=== PATIENT | female | born 1945 | race Caucasian/White ===

== ENCOUNTER → 2016-10-30 | Outpatient (CLI) | payer MEDICARE, BC ==
[~2016-10-30] MED LIST: ADVIL LIQUI-GE200 MG PO; ALBUTEROL SULFAT3 M3 IH; ATORVASTATIN CA20 MG PO; BENADRYL ALLERG25 M2 PO; BISACODYL10 MG RC; CALCIUM 600600 M2 PO; CALCIUM CITRAT250 M1 PO; CELEXA 20MG20 MG/TA1 PO; CHILDREN'S ASPI81 M1 PO; CIPRO 500MG TA500 MG PO; CITALOPRAM HBR10 MG PO; CITRACAL + D 251 TAB PO; CITRACAL + D 311 TAB PO; CLONAZEPAM0.5 MG PO; COLACE50 MG PO; DESITIN ORIGINAL TP; ENEMA 135 ML135 M1 RC; FORTEO250 MCG/ML SC; FOSAMAX 70MG TA70 MG PO; FOSAMAX70 MG PO; GOOD NEIGH1200 MG/15 PO; KELP TABLETS1 TAB PO; KEPPRA 500MG500 MG PO; KEPPRA1000 MG PO; KLONOPIN 0.5MG0.5 MG PO; LEADER MELATONIN5 MG PO; LISINOPRIL10 MG PO; LISINOPRIL20 MG PO; LISINOPRIL5 MG PO; MASON NATURAL2000 IU PO; MELATONIN5 M4 PO; MILK OF MA400 MG/52 PO; MIRALAX 17GM PK1 PKT PO; MIRALAX17 GM PO; NS 1000 10001000 ML IV; OMEGA 3 120 MG-1 CAP PO; PEPCID AC20 M1 PO; RITE AID KRILL500 MG PO; ROCEPHIN VIA1 G/VIAL IM; ROCEPHIN VIA1 G/VIAL IV; TYLENOL 325MG325 MG PO; TYLENOL 500MG500 MG PO; ZETIA 10MG TAB10 MG PO; ZOLOFT 50MG50 MG PO; [UNRECOGNIZED DRUG - OTHER] MM; [UNRECOGNIZED DRUG - OTHER] PO
== END ==
LOC: RAD 10:57
DX: Z13.820 Encounter for screening for osteoporosis (principal); M81.0 Age-related osteoporosis without current pathological fracture

== ENCOUNTER → 2016-11-13 | Outpatient (CLI) | payer MEDICARE, BC ==
[2016-06-26 08:07] VITALS: BP 115/50
== END ==
LOC: LAB 05:51
DX: G11.4 Hereditary spastic paraplegia (principal)

== ENCOUNTER → 2017-03-05 | Outpatient (CLI) | payer MEDICARE, BC ==
[2016-06-26 08:07] VITALS: BP 115/50
== END ==
LOC: MAMMO 14:17
DX: N64.4 Mastodynia (principal)

== ENCOUNTER 2017-05-13 04:28 | Emergency (ER) | payer MEDICARE, BC ==
[~2017-05-13] VITALS: Wt 66.0 kg
[~2017-05-13 04:28] MED LIST changes: +DITROPAN XL 5MG5 MG PO; +MUCINEX DM 60 M1 TER PO; +ZITHROMAX Z PA250 MG PO
[2017-05-13] MEDS ORDERED: COLACE100 M1 PO (05:16)
[2017-05-13] MEDS ORDERED: MIRALAX17 GM PO (05:17)
[2017-05-13] MEDS ORDERED: TYLENOL 500MG500 MG PO (05:18)
[2017-05-13] MEDS ORDERED: VITAMIN D32000 IU PO (05:20)
[2017-05-13] MEDS ORDERED: CIPROFLOXA400 MG/202 IV (09:26)
[2017-05-13 10:08] VITALS: BP 119/58
== END 2017-05-13 10:37 | disposition home or self-care (01) ==
LOC: ED 04:28
DX: N39.0 Urinary tract infection, site not specified (principal); R41.82 Altered mental status, unspecified; E16.2 Hypoglycemia, unspecified; G35 Multiple sclerosis; F41.9 Anxiety disorder, unspecified; F32.9 Major depressive disorder, single episode, unspecified; K59.00 Constipation, unspecified; M81.0 Age-related osteoporosis without current pathological fracture
CPT/HCPCS: J0744; J7120

== ENCOUNTER → 2017-05-28 | Outpatient (CLI) | payer MEDICARE, BC ==
[2017-05-13 10:08] VITALS: BP 119/58
[~2017-05-28] MED LIST changes: +CIPROFLOXA400 MG/202 IV; +COLACE100 M1 PO; +VITAMIN D32000 IU PO
== END ==
LOC: LAB 06:25
DX: D64.9 Anemia, unspecified (principal); R31.9 Hematuria, unspecified

== ENCOUNTER → 2017-06-01 | Outpatient (CLI) | payer MEDICARE, BC ==
[2017-05-13 10:08] VITALS: BP 119/58
== END ==
LOC: LAB 02:30
DX: N39.0 Urinary tract infection, site not specified (principal); R31.9 Hematuria, unspecified

== ENCOUNTER → 2017-06-16 | Outpatient (CLI) | payer MEDICARE, BC | LOC: LAB 06:30 | DX: Z01.812 Encounter for preprocedural laboratory examination (principal) ==

== ENCOUNTER → 2017-06-30 | Outpatient (CLI) | payer MEDICARE, BC ==
[2017-06-30 10:44] LABS: URINE APPEARANCE CLOUDY; URINE BILIRUBIN NEGATIVE (NEGATIVE); URINE BLOOD 50 ery/uL (NEGATIVE); URINE COLOR YELLOW; URINE GLUCOSE NEGATIVE (NEGATIVE); URINE KETONE NEGATIVE (NEGATIVE); URINE LEUKOCYTE ESTERASE 2+ (NEGATIVE); URINE MUCUS PRESENT (NOT PRESENT); URINE NITRATE NEGATIVE (NEGATIVE); URINE PROTEIN(semi-quant) TRACE mg/dL (NEGATIVE); URINE UROBILINOGEN NORMAL (NORMAL); URINE WBC >50 /hpf (0-3)
== END ==
LOC: LAB 10:30
PROVIDERS: Family Medicine
DX: R82.99 Other abnormal findings in urine (principal)

== ENCOUNTER → 2017-08-10 | Outpatient (CLI) | payer MEDICARE, BC | LOC: RAD 07:55 | DX: N31.2 Flaccid neuropathic bladder, not elsewhere classified (principal); N39.0 Urinary tract infection, site not specified ==

== ENCOUNTER → 2017-09-08 | Outpatient (CLI) | payer MEDICARE, BC ==
[2017-09-08 16:05] LABS: ALBUMIN 4.1 g/dL (3.5-5.0); BUN/CREATININE RATIO 21.9 (6.0-26.0); CALCIUM 9.6 mg/dL (8.4-10.2); TOTAL BILIRUBIN 0.4 mg/dL (0.2-1.3)
[2017-09-08 17:16] LABS: PROTHROMBIN TIME 9.3 SECONDS (9.0-12.0)
[2017-09-08 20:36] LABS: BASO # 0.1 (0.02-0.10); EOS # 0.1 (0.04-0.40); HEMATOCRIT 35.1 % (37.0-47.0); HEMOGLOBIN 11.3 g/dL (12.5-16.0); LYMPH# 0.8 (1.50-4.00); MEAN CELL VOLUME 96 fl (78-100); MEAN CORPUSCULAR HEMOGLOBIN 31 pg (27-31); MEAN CORPUSCULAR HGB CONC 32 g/dL (33-37); MEAN PLATELET VOLUME 10.1 fl (7.4-10.4); MONO # 0.3 (0.20-0.80); NEU # 2.1 (1.40-6.50); PLATELET COUNT 244 K/mm3 (130-400); RED BLOOD COUNT 3.65 M/mm3 (4.10-5.30); RED CELL DISTRIBUTION WIDTH 14.2 % (11.5-14.5); WHITE BLOOD COUNT 3.4 K/mm3 (4.8-10.8)
[2017-09-09 00:27] LABS: HEPATITIS B CORE AB TOTAL Negative (()); HEPATITIS B SURFACE ANTIBODY <2.0 (()); HEPATITIS B SURFACE ANTIGEN Negative (()); HEPATITIS C VIRUS ANTIBODY Negative (())
[2017-09-09 22:07] LABS: ANA SCREEN with REFLEX Negative (Negative)
[2017-09-10 15:11] LABS: CERULOPLASMIN 38.5 mg/dL (())
[2017-09-11 13:20] LABS: ANTI-SMOOTH MUSCLE ANTIBODY Negative (Negative)
== END ==
LOC: RAD 15:06
PROVIDERS: Physician Assistant
DX: R74.8 Abnormal levels of other serum enzymes (principal); G35 Multiple sclerosis; K63.89 Other specified diseases of intestine

== ENCOUNTER → 2017-09-29 | Outpatient (CLI) | payer MEDICARE, BC | LOC: LAB 15:02 | DX: K63.89 Other specified diseases of intestine (principal); R74.8 Abnormal levels of other serum enzymes; G35 Multiple sclerosis ==

== ENCOUNTER 2017-11-22 08:45 | Emergency (ER) | payer MEDICARE, BC ==
[2017-11-22] MEDS ORDERED: LEVOTHYROXIN0.025 MG PO (09:04)
[2017-11-22] MEDS ORDERED: ZOFRAN4 M2 PO (09:07)
[2017-11-22 09:36] LABS: HEMOGLOBIN 11.1 g/dL (12.5-16.0); MEAN CELL VOLUME 96 fl (78-100); MEAN CORPUSCULAR HEMOGLOBIN 31 pg (27-31); MEAN CORPUSCULAR HGB CONC 33 g/dL (33-37); MEAN PLATELET VOLUME 9.6 fl (7.4-10.4); PLATELET COUNT 207 K/mm3 (130-400); RED BLOOD COUNT 3.56 M/mm3 (4.10-5.30); RED CELL DISTRIBUTION WIDTH 13.7 % (11.5-14.5); WHITE BLOOD COUNT 7.6 K/mm3 (4.8-10.8)
[2017-11-22 09:46] LABS: ALBUMIN 3.8 g/dL (3.5-5.0); BUN/CREATININE RATIO 28.9 (6.0-26.0); CALCIUM 9.8 mg/dL (8.4-10.2); POTASSIUM 4.1 mmol/L (3.6-5.0); TOTAL BILIRUBIN 0.4 mg/dL (0.2-1.3); TOTAL PROTEIN 7.5 g/dL (6.3-8.2)
[2017-11-22 10:06] LABS: URINE APPEARANCE CLEAR; URINE BILIRUBIN NEGATIVE (NEGATIVE); URINE BLOOD TRACE (NEGATIVE); URINE COLOR YELLOW; URINE GLUCOSE NEGATIVE (NEGATIVE); URINE KETONE 3+ (NEGATIVE); URINE LEUKOCYTE ESTERASE NEGATIVE (NEGATIVE); URINE NITRATE NEGATIVE (NEGATIVE); URINE PROTEIN(semi-quant) TRACE mg/dL (NEGATIVE); URINE UROBILINOGEN NORMAL (NORMAL)
[2017-11-22 10:06] LABS: LYMPHOCYTE 7 % (20-51); MONOCYTE 6 % (3-10); NEUTROPHILS 87 % (42-75)
[2017-11-22 10:13] LABS: URINE MUCUS PRESENT (NOT PRESENT)
[2017-11-22 15:24] VITALS: BP 128/62
== END 2017-11-22 15:15 | disposition home or self-care (01) ==
LOC: ED 08:45
PROVIDERS: Family Medicine
DX: R53.81 Other malaise (principal); R53.83 Other fatigue; R73.9 Hyperglycemia, unspecified; G35 Multiple sclerosis; R13.10 Dysphagia, unspecified; Z87.440 Personal history of urinary (tract) infections; Z79.82 Long term (current) use of aspirin
CPT/HCPCS: J7042

== ENCOUNTER → 2017-12-07 | Outpatient (CLI) | payer MEDICARE, BC ==
[2017-11-22 15:24] VITALS: BP 128/62
[~2017-12-07] MED LIST changes: +LEVOTHYROXIN0.025 MG PO; +ZOFRAN4 M2 PO
== END ==
LOC: LAB 06:36
DX: E03.9 Hypothyroidism, unspecified (principal); Z88.8 Allergy status to other drugs, medicaments and biological substances

== ENCOUNTER → 2018-03-30 | Outpatient (CLI) | payer MEDICARE, BC ==
[2018-03-30 16:13] LABS: EOS # 0.1 (0.04-0.40); EOS % 2.3 % (1.0-5.0); HEMATOCRIT 33.6 % (37.0-47.0); HEMOGLOBIN 10.9 g/dL (12.5-16.0); LYMPH# 0.8 (1.50-4.00); MEAN CELL VOLUME 95 fl (78-100); MEAN CORPUSCULAR HEMOGLOBIN 31 pg (27-31); MEAN CORPUSCULAR HGB CONC 32 g/dL (33-37); MEAN PLATELET VOLUME 10.3 fl (7.4-10.4); MONO # 0.4 (0.20-0.80); NEU # 3.3 (1.40-6.50); PLATELET COUNT 146 K/mm3 (130-400); RED BLOOD COUNT 3.55 M/mm3 (4.10-5.30); RED CELL DISTRIBUTION WIDTH 14.1 % (11.5-14.5); WHITE BLOOD COUNT 4.7 K/mm3 (4.8-10.8)
[2018-03-30 16:18] LABS: ALBUMIN 4.1 g/dL (3.5-5.0); BUN/CREATININE RATIO 25.8 (6.0-26.0); CALCIUM 9.8 mg/dL (8.4-10.2); POTASSIUM 4.8 mmol/L (3.6-5.0); TOTAL BILIRUBIN 0.2 mg/dL (0.2-1.3); TOTAL PROTEIN 7.5 g/dL (6.3-8.2)
== END ==
LOC: LAB 15:44
PROVIDERS: Physician Assistant
DX: R74.8 Abnormal levels of other serum enzymes (principal); G35 Multiple sclerosis

== ENCOUNTER → 2018-04-01 | Outpatient (CLI) | payer MEDICARE, BC | LOC: RAD 08:20 | DX: R74.8 Abnormal levels of other serum enzymes (principal); G35 Multiple sclerosis ==

== ENCOUNTER 2018-05-15 05:10 | Emergency (ER) | payer MEDICARE, BC ==
[2018-05-15] MEDS ORDERED: ENEMA BOTTLE1 EACH MC (06:07)
[2018-05-15 06:19] LABS: HEMATOCRIT 33.9 % (37.0-47.0); HEMOGLOBIN 11.2 g/dL (12.5-16.0); MEAN CELL VOLUME 94 fl (78-100); MEAN CORPUSCULAR HEMOGLOBIN 31 pg (27-31); MEAN CORPUSCULAR HGB CONC 33 g/dL (33-37); MEAN PLATELET VOLUME 10.3 fl (7.4-10.4); PLATELET COUNT 166 K/mm3 (130-400); RED BLOOD COUNT 3.61 M/mm3 (4.10-5.30); RED CELL DISTRIBUTION WIDTH 14.1 % (11.5-14.5); WHITE BLOOD COUNT 6.2 K/mm3 (4.8-10.8)
[2018-05-15 06:29] LABS: ALBUMIN 3.8 g/dL (3.5-5.0); CALCIUM 9.8 mg/dL (8.4-10.2); POTASSIUM 4.2 mmol/L (3.6-5.0); TOTAL BILIRUBIN 0.3 mg/dL (0.2-1.3); TOTAL PROTEIN 6.7 g/dL (6.3-8.2)
[2018-05-15 06:55] LABS: LYMPHOCYTE 14 % (20-51); MONOCYTE 4 % (3-10); NEUTROPHILS 82 % (42-75)
[2018-05-15 07:29] VITALS: BP 160/74
== END 2018-05-15 07:20 | disposition home or self-care (01) ==
LOC: ED 05:10
PROVIDERS: Family Medicine
DX: F41.9 Anxiety disorder, unspecified (principal); G35 Multiple sclerosis; Z79.82 Long term (current) use of aspirin; Z79.899 Other long term (current) drug therapy

== ENCOUNTER → 2018-05-28 | Outpatient (CLI) | payer MEDICARE, BC ==
[2018-05-15 07:29] VITALS: BP 160/74
[~2018-05-28] MED LIST changes: +ENEMA BOTTLE1 EACH MC
[2018-05-28 08:42] LABS: EOS # 0.1 (0.04-0.40); EOS % 2.6 % (1.0-5.0); HEMATOCRIT 31.2 % (37.0-47.0); HEMOGLOBIN 10.4 g/dL (12.5-16.0); MEAN CELL VOLUME 94 fl (78-100); MEAN CORPUSCULAR HEMOGLOBIN 31 pg (27-31); MEAN CORPUSCULAR HGB CONC 33 g/dL (33-37); MEAN PLATELET VOLUME 10.2 fl (7.4-10.4); MONO # 0.4 (0.20-0.80); NEU # 2.3 (1.40-6.50); PLATELET COUNT 160 K/mm3 (130-400); RED BLOOD COUNT 3.32 M/mm3 (4.10-5.30); RED CELL DISTRIBUTION WIDTH 14.1 % (11.5-14.5); WHITE BLOOD COUNT 3.8 K/mm3 (4.8-10.8)
== END ==
LOC: LAB 07:30
PROVIDERS: Family Medicine
DX: D72.819 Decreased white blood cell count, unspecified (principal)

== ENCOUNTER → 2018-08-09 | Day surgery (SDC) | payer MEDICARE, BC | LOC: MSO 08:19 → EDSTATUS 08:20 → MSO 15:18 | DX: D64.9 Anemia, unspecified (principal); G40.909 Epilepsy, unspecified, not intractable, without status epilepticus; F41.9 Anxiety disorder, unspecified; F32.9 Major depressive disorder, single episode, unspecified; G35 Multiple sclerosis; E07.9 Disorder of thyroid, unspecified; F79 Unspecified intellectual disabilities | CPT/HCPCS: 00812; J2704; J7120 ==

== ENCOUNTER → 2018-11-16 | Outpatient (CLI) | payer MEDICARE, BC | LOC: RAD 09:54 → MAMMO 10:00 | DX: M81.0 Age-related osteoporosis without current pathological fracture (principal); N95.9 Unspecified menopausal and perimenopausal disorder ==

== ENCOUNTER → 2019-01-11 | Outpatient (CLI) | payer MEDICARE, BC ==
[2019-01-11 22:13] LABS: URINE APPEARANCE CLOUDY; URINE BILIRUBIN NEGATIVE (NEGATIVE); URINE COLOR YELLOW; URINE GLUCOSE NEGATIVE (NEGATIVE); URINE KETONE NEGATIVE (NEGATIVE); URINE NITRATE POSITIVE (NEGATIVE); URINE PROTEIN(semi-quant) TRACE mg/dL (NEGATIVE); URINE UROBILINOGEN NORMAL (NORMAL)
[2019-01-11 22:14] LABS: URINE BLOOD TRACE (NEGATIVE); URINE LEUKOCYTE ESTERASE 2+ (NEGATIVE); URINE WBC >50 /hpf (0-3)
== END ==
LOC: LAB 16:34
PROVIDERS: Family Medicine
DX: R03.0 Elevated blood-pressure reading, without diagnosis of hypertension (principal)

== ENCOUNTER → 2019-01-12 | Outpatient (CLI) | payer MEDICARE, BC ==
[2019-01-12 07:02] LABS: HEMATOCRIT 32.5 % (37.0-47.0); HEMOGLOBIN 10.4 g/dL (12.5-16.0); MEAN CELL VOLUME 95 fl (78-100); MEAN CORPUSCULAR HEMOGLOBIN 30 pg (27-31); MEAN CORPUSCULAR HGB CONC 32 g/dL (33-37); PLATELET COUNT 165 K/mm3 (130-400); RED BLOOD COUNT 3.44 M/mm3 (4.10-5.30); RED CELL DISTRIBUTION WIDTH 13.7 % (11.5-14.5); WHITE BLOOD COUNT 2.6 K/mm3 (4.8-10.8)
[2019-01-12 07:21] LABS: LYMPHOCYTE 31 % (20-51); MONOCYTE 13 % (3-10); NEUTROPHILS 49 % (42-75)
[2019-01-12 07:38] LABS: ALBUMIN 3.3 g/dL (3.4-4.8); TOTAL PROTEIN 6.2 g/dL (6.2-8.1)
[2019-01-12 07:47] LABS: TOTAL BILIRUBIN 0.1 mg/dL (0.2-1.2)
== END ==
LOC: LAB 06:15
PROVIDERS: Family Medicine
DX: E78.5 Hyperlipidemia, unspecified (principal); E03.9 Hypothyroidism, unspecified; R60.1 Generalized edema

== ENCOUNTER → 2019-01-20 | Outpatient (CLI) | payer MEDICARE, BC ==
[2019-01-20 07:15] LABS: HEMATOCRIT 33.1 % (37.0-47.0); HEMOGLOBIN 10.9 g/dL (12.5-16.0); MEAN CELL VOLUME 93 fl (78-100); MEAN CORPUSCULAR HEMOGLOBIN 31 pg (27-31); MEAN CORPUSCULAR HGB CONC 33 g/dL (33-37); MEAN PLATELET VOLUME 10.5 fl (7.4-10.4); PLATELET COUNT 161 K/mm3 (130-400); RED BLOOD COUNT 3.56 M/mm3 (4.10-5.30); RED CELL DISTRIBUTION WIDTH 13.9 % (11.5-14.5)
[2019-01-20 08:11] LABS: BAND 0 % (0-10); LYMPHOCYTE 19 % (20-51); NEUTROPHILS 59 % (42-75)
[2019-01-20 08:12] LABS: METAMYELOCYTE 0 % (0-0); MONOCYTE 16 % (3-10); MYELOCYTE 0 % (0-0); NUCLEATED RED BLOOD CELL 0 (0-6)
== END ==
LOC: LAB 06:15
PROVIDERS: Family Medicine
DX: D72.819 Decreased white blood cell count, unspecified (principal)

== ENCOUNTER → 2019-01-28 | Outpatient (CLI) | payer MEDICARE, BC ==
[2019-01-28 07:42] LABS: URINE APPEARANCE CLEAR; URINE BILIRUBIN NEGATIVE (NEGATIVE); URINE BLOOD NEGATIVE (NEGATIVE); URINE COLOR YELLOW; URINE GLUCOSE NEGATIVE (NEGATIVE); URINE KETONE NEGATIVE (NEGATIVE); URINE LEUKOCYTE ESTERASE NEGATIVE (NEGATIVE); URINE NITRATE NEGATIVE (NEGATIVE); URINE PROTEIN(semi-quant) NEGATIVE (NEGATIVE); URINE UROBILINOGEN NORMAL (NORMAL); URINE WBC 0 /hpf (0-3)
== END ==
LOC: LAB 01:05
PROVIDERS: Family Medicine
DX: R31.9 Hematuria, unspecified (principal)

== ENCOUNTER 2019-07-23 11:15 | Emergency (ER) | payer MEDICARE, BC ==
[~2019-07-23] VITALS: Ht 160 cm; Wt 61.8 kg
[2019-07-23 12:18] LABS: HEMATOCRIT 33.7 % (37.0-47.0); HEMOGLOBIN 10.7 g/dL (12.5-16.0); MEAN CELL VOLUME 98 fl (78-100); MEAN CORPUSCULAR HEMOGLOBIN 31 pg (27-31); MEAN CORPUSCULAR HGB CONC 32 g/dL (33-37); MEAN PLATELET VOLUME 9.9 fl (7.4-10.4); PLATELET COUNT 179 K/mm3 (130-400); RED BLOOD COUNT 3.43 M/mm3 (4.10-5.30); RED CELL DISTRIBUTION WIDTH 14.7 % (11.5-14.5); WHITE BLOOD COUNT 5.5 K/mm3 (4.8-10.8)
[2019-07-23 12:26] LABS: ALBUMIN 3.7 g/dL (3.4-4.8)
[2019-07-23 12:27] LABS: POTASSIUM 4.7 mmol/L (3.5-5.1)
[2019-07-23 12:28] LABS: CALCIUM 9.8 mg/dL (8.3-10.5)
[2019-07-23 12:29] LABS: TOTAL PROTEIN 7.1 g/dL (6.2-8.1)
[2019-07-23 12:31] LABS: TOTAL BILIRUBIN 0.4 mg/dL (0.2-1.2)
[2019-07-23 12:45] LABS: HYPOCHROMIA 1+; LYMPHOCYTE 11 % (20-51); MONOCYTE 10 % (3-10); NEUTROPHILS 79 % (42-75)
[2019-07-23 13:00] LABS: PH-URINE 5.5 (5.0 - 8.0); URINE APPEARANCE CLEAR; URINE BILIRUBIN NEGATIVE (NEGATIVE); URINE COLOR YELLOW; URINE GLUCOSE NEGATIVE (NEGATIVE); URINE KETONE 2+ (NEGATIVE); URINE NITRATE NEGATIVE (NEGATIVE); URINE PROTEIN(semi-quant) TRACE mg/dL (NEGATIVE); URINE UROBILINOGEN NORMAL (NORMAL)
[2019-07-23 13:01] LABS: URINE BLOOD TRACE (NEGATIVE); URINE LEUKOCYTE ESTERASE NEGATIVE (NEGATIVE); URINE MUCUS PRESENT (NOT PRESENT)
[2019-07-23] MEDS ORDERED: ARTIFICIAL TEAR15 M7 OP (14:16)
[2019-07-23] MEDS ORDERED: IBU800 M2 PO (14:18)
[2019-07-23] MEDS ORDERED: TRAMADOL 50 MG TAB PO (14:19)
[2019-07-23] MEDS ORDERED: GLUCAGON HCL1 MG IM (17:35)
[2019-07-23 18:03] VITALS: BP 144/72
== END 2019-07-23 18:03 | disposition home or self-care (01) ==
LOC: ED 11:15
PROVIDERS: Family Medicine
DX: K11.7 Disturbances of salivary secretion (principal); E16.2 Hypoglycemia, unspecified; G40.909 Epilepsy, unspecified, not intractable, without status epilepticus; F41.8 Other specified anxiety disorders; G35 Multiple sclerosis; Z79.82 Long term (current) use of aspirin

== ENCOUNTER → 2019-09-20 | Outpatient (CLI) | payer MEDICARE, BC ==
[~2019-09-20] MED LIST changes: +ARTIFICIAL TEAR15 M7 OP; +GLUCAGON HCL1 MG IM; +IBU800 M2 PO; +TRAMADOL 50 MG TAB PO
[2019-09-20 15:56] LABS: URINE APPEARANCE CLOUDY; URINE BILIRUBIN NEGATIVE (NEGATIVE); URINE BLOOD TRACE (NEGATIVE); URINE COLOR YELLOW; URINE GLUCOSE NEGATIVE (NEGATIVE); URINE KETONE NEGATIVE (NEGATIVE); URINE LEUKOCYTE ESTERASE 2+ (NEGATIVE); URINE NITRATE POSITIVE (NEGATIVE); URINE PROTEIN(semi-quant) TRACE mg/dL (NEGATIVE); URINE UROBILINOGEN NORMAL (NORMAL); URINE WBC >50 /hpf (0-3)
== END ==
LOC: LAB 15:52
PROVIDERS: Family Medicine
DX: N39.0 Urinary tract infection, site not specified (principal); R41.0 Disorientation, unspecified

== ENCOUNTER → 2020-02-07 | Outpatient (CLI) | payer MEDICARE, BC ==
[2020-02-07 16:48] LABS: ALBUMIN 3.7 g/dL (3.4-4.8)
[2020-02-07 16:49] LABS: CALCIUM 9.7 mg/dL (8.3-10.5)
[2020-02-07 16:50] LABS: TOTAL PROTEIN 6.9 g/dL (6.2-8.1)
[2020-02-07 16:52] LABS: EOS # 0.1 (0.04-0.40); EOS % 1.9 % (1.0-5.0); HEMATOCRIT 31.1 % (37.0-47.0); HEMOGLOBIN 9.7 g/dL (12.5-16.0); LYMPH# 0.6 (1.50-4.00); MEAN CELL VOLUME 98 fl (78-100); MEAN CORPUSCULAR HEMOGLOBIN 30 pg (27-31); MEAN CORPUSCULAR HGB CONC 31 g/dL (33-37); MEAN PLATELET VOLUME 10.9 fl (7.4-10.4); MONO # 0.4 (0.20-0.80); NEU # 2.6 (1.40-6.50); PLATELET COUNT 137 K/mm3 (130-400); RED BLOOD COUNT 3.19 M/mm3 (4.10-5.30); RED CELL DISTRIBUTION WIDTH 14.9 % (11.5-14.5); TOTAL BILIRUBIN 0.2 mg/dL (0.2-1.2); WHITE BLOOD COUNT 3.8 K/mm3 (4.8-10.8)
[2020-02-07 18:07] LABS: URINE APPEARANCE CLOUDY; URINE BILIRUBIN NEGATIVE (NEGATIVE); URINE BLOOD TRACE (NEGATIVE); URINE COLOR YELLOW; URINE GLUCOSE NEGATIVE (NEGATIVE); URINE KETONE NEGATIVE (NEGATIVE); URINE LEUKOCYTE ESTERASE 2+ (NEGATIVE); URINE NITRATE POSITIVE (NEGATIVE); URINE PROTEIN(semi-quant) TRACE mg/dL (NEGATIVE); URINE UROBILINOGEN NORMAL (NORMAL); URINE WBC >50 /hpf (0-3)
[2020-02-09 04:12] LABS: LEVETIRACETAM (KEPPRA) 63 ug/mL (5-45)
== END ==
LOC: LAB 16:23
PROVIDERS: Family Medicine
DX: G35 Multiple sclerosis (principal); N39.0 Urinary tract infection, site not specified; E56.9 Vitamin deficiency, unspecified

== ENCOUNTER → 2020-02-09 | Outpatient (CLI) | payer MEDICARE, BC ==
[2020-02-09 18:53] LABS: HEMOGLOBIN 10.1 g/dL (12.5-16.0); RED BLOOD COUNT 3.3 M/mm3 (4.10-5.30); RED CELL DISTRIBUTION WIDTH 14.8 % (11.5-14.5); WHITE BLOOD COUNT 3.6 K/mm3 (4.8-10.8)
== END ==
LOC: LAB 18:44
PROVIDERS: Family Medicine
DX: D64.9 Anemia, unspecified (principal)

== ENCOUNTER → 2020-02-21 | Outpatient (CLI) | payer MEDICARE, BC ==
[2020-02-21 18:50] LABS: URINE APPEARANCE CLEAR; URINE BILIRUBIN NEGATIVE (NEGATIVE); URINE BLOOD TRACE (NEGATIVE); URINE COLOR YELLOW; URINE GLUCOSE NEGATIVE (NEGATIVE); URINE KETONE NEGATIVE (NEGATIVE); URINE LEUKOCYTE ESTERASE NEGATIVE (NEGATIVE); URINE NITRATE NEGATIVE (NEGATIVE); URINE PROTEIN(semi-quant) NEGATIVE (NEGATIVE); URINE UROBILINOGEN NORMAL (NORMAL); URINE WBC 0-1 /hpf (0-3)
== END ==
LOC: LAB 15:50
PROVIDERS: Family Medicine
DX: N39.0 Urinary tract infection, site not specified (principal)

== ENCOUNTER → 2020-02-22 | Outpatient (CLI) | payer MEDICARE, BC ==
[2020-02-28 14:49] LABS: IGM,SERUM A; IMMUNOGLOBULIN G A
[2020-02-28 14:50] LABS: IMMUNOGLOBULIN A A
== END ==
LOC: LAB 12:35
PROVIDERS: Psychiatry & Neurology Neurology
DX: Z51.81 Encounter for therapeutic drug level monitoring (principal); G35 Multiple sclerosis

== ENCOUNTER → 2020-02-29 | Outpatient (CLI) | payer MEDICARE, BC ==
[2020-02-29 11:30] LABS: URINE APPEARANCE CLOUDY; URINE COLOR LT YELLOW; URINE GLUCOSE NEGATIVE (NEGATIVE); URINE PROTEIN(semi-quant) TRACE mg/dL (NEGATIVE)
[2020-02-29 11:31] LABS: URINE BILIRUBIN NEGATIVE (NEGATIVE); URINE BLOOD 50 ery/uL (NEGATIVE); URINE KETONE NEGATIVE (NEGATIVE); URINE LEUKOCYTE ESTERASE 2+ (NEGATIVE); URINE NITRATE POSITIVE (NEGATIVE); URINE UROBILINOGEN NORMAL (NORMAL); URINE WBC >50 /hpf (0-3)
== END ==
LOC: LAB 05:05
PROVIDERS: Family Medicine
DX: R31.9 Hematuria, unspecified (principal)

== ENCOUNTER → 2020-03-14 | Outpatient (CLI) | payer MEDICARE, BC ==
[2020-03-14 11:33] LABS: URINE APPEARANCE CLEAR; URINE BILIRUBIN NEGATIVE (NEGATIVE); URINE BLOOD NEGATIVE (NEGATIVE); URINE COLOR YELLOW; URINE GLUCOSE NEGATIVE (NEGATIVE); URINE KETONE NEGATIVE (NEGATIVE); URINE LEUKOCYTE ESTERASE NEGATIVE (NEGATIVE); URINE NITRATE NEGATIVE (NEGATIVE); URINE PROTEIN(semi-quant) TRACE mg/dL (NEGATIVE); URINE UROBILINOGEN NORMAL (NORMAL); URINE WBC 0-1 /hpf (0-3)
== END ==
LOC: LAB 10:40
PROVIDERS: Family Medicine
DX: N39.0 Urinary tract infection, site not specified (principal)

== ENCOUNTER → 2020-04-03 | Outpatient (CLI) | payer MEDICARE, BC ==
[2020-04-03 15:28] LABS: EOS % 1.1 % (1.0-5.0); HEMATOCRIT 28.6 % (37.0-47.0); MEAN CELL VOLUME 98 fl (78-100); MEAN CORPUSCULAR HEMOGLOBIN 31 pg (27-31); MEAN CORPUSCULAR HGB CONC 32 g/dL (33-37); MONO # 0.4 (0.20-0.80); NEU # 2.7 (1.40-6.50); PLATELET COUNT 145 K/mm3 (130-400); RED BLOOD COUNT 2.92 M/mm3 (4.10-5.30); WHITE BLOOD COUNT 3.6 K/mm3 (4.8-10.8)
[2020-04-03 15:29] LABS: LYMPH# 0.5 (1.50-4.00)
== END ==
LOC: LAB 14:37
PROVIDERS: Family Medicine
DX: D64.9 Anemia, unspecified (principal); R56.9 Unspecified convulsions

== ENCOUNTER → 2020-04-11 | Outpatient (CLI) | payer MEDICARE, BC ==
[2020-04-11 08:53] LABS: PH-URINE 5.5 (5.0 - 8.0); URINE APPEARANCE HAZY; URINE BILIRUBIN NEGATIVE (NEGATIVE); URINE BLOOD TRACE (NEGATIVE); URINE COLOR YELLOW; URINE GLUCOSE NEGATIVE (NEGATIVE); URINE KETONE SMALL (NEGATIVE); URINE LEUKOCYTE ESTERASE NEGATIVE (NEGATIVE); URINE NITRATE NEGATIVE (NEGATIVE); URINE PROTEIN(semi-quant) NEGATIVE (NEGATIVE); URINE UROBILINOGEN NORMAL (NORMAL)
== END ==
LOC: LAB 07:36
PROVIDERS: Family Medicine
DX: N30.20 Other chronic cystitis without hematuria (principal); R32 Unspecified urinary incontinence

== ENCOUNTER → 2020-04-12 | Outpatient (CLI) | payer MEDICARE, BC ==
[2020-04-12 12:28] LABS: HEMOGLOBIN 9.5 g/dL (12.5-16.0); MEAN CELL VOLUME 98 fl (78-100); MEAN CORPUSCULAR HEMOGLOBIN 31 pg (27-31); MEAN CORPUSCULAR HGB CONC 32 g/dL (33-37); MEAN PLATELET VOLUME 9.4 fl (7.4-10.4); PLATELET COUNT 203 K/mm3 (130-400); RED BLOOD COUNT 3.07 M/mm3 (4.10-5.30); RED CELL DISTRIBUTION WIDTH 14.9 % (11.5-14.5); WHITE BLOOD COUNT 2.6 K/mm3 (4.8-10.8)
[2020-04-12 13:45] LABS: LYMPHOCYTE 17 % (20-51); MONOCYTE 15 % (3-10); NEUTROPHILS 65 % (42-75)
[2020-04-12 13:46] LABS: HYPOCHROMIA 1+
== END ==
LOC: LAB 11:56
PROVIDERS: Family Medicine
DX: D64.9 Anemia, unspecified (principal)

== ENCOUNTER → 2020-04-24 | Outpatient (CLI) | payer MEDICARE, BC ==
[2020-04-24 08:44] LABS: EOS % 0.8 % (1.0-5.0); HEMATOCRIT 29.5 % (37.0-47.0); HEMOGLOBIN 9.2 g/dL (12.5-16.0); MEAN CELL VOLUME 99 fl (78-100); MEAN CORPUSCULAR HEMOGLOBIN 31 pg (27-31); MEAN CORPUSCULAR HGB CONC 31 g/dL (33-37); MEAN PLATELET VOLUME 10.6 fl (7.4-10.4); MONO # 0.5 (0.20-0.80); NEU # 3.7 (1.40-6.50); PLATELET COUNT 151 K/mm3 (130-400); RED BLOOD COUNT 2.99 M/mm3 (4.10-5.30); RED CELL DISTRIBUTION WIDTH 15.4 % (11.5-14.5); WHITE BLOOD COUNT 4.9 K/mm3 (4.8-10.8)
[2020-04-24 08:45] LABS: LYMPH# 0.6 (1.50-4.00)
== END ==
LOC: LAB 08:31
PROVIDERS: Family Medicine
DX: D64.9 Anemia, unspecified (principal)

== ENCOUNTER → 2020-05-31 | Outpatient (CLI) | payer MEDICARE, BC ==
[2020-05-31 08:29] LABS: URINE APPEARANCE HAZY; URINE BILIRUBIN NEGATIVE (NEGATIVE); URINE BLOOD 250 ery/uL (NEGATIVE); URINE COLOR YELLOW; URINE GLUCOSE NEGATIVE (NEGATIVE); URINE KETONE NEGATIVE (NEGATIVE); URINE LEUKOCYTE ESTERASE 2+ (NEGATIVE); URINE NITRATE POSITIVE (NEGATIVE); URINE PROTEIN(semi-quant) TRACE mg/dL (NEGATIVE); URINE UROBILINOGEN NORMAL (NORMAL); URINE WBC >50 /hpf (0-3)
== END ==
LOC: LAB 07:42
PROVIDERS: Family Medicine
DX: R53.81 Other malaise (principal)

== ENCOUNTER → 2020-06-14 | Outpatient (CLI) | payer MEDICARE, BC ==
[~2020-06-14] MED LIST changes: +ALBUTEROL2.5 MG/3 M IH; -BISACODYL10 MG RC; +CALCIUM ADULT1 EACH PO; +CRANBERRY450 M2 PO; +DULCOLAX S10 MG/SUPP RC; +GLUCAGEN DIAGNOS1 MG IM; +LEVETIRACETAM500 M2 PO; +SYSTANE COMPLET10 ML OU; +TYLENOL EXTRA500 M2 PO; +VITAMIN C PUR1000 MG PO; +WELLBUTRIN 75MG75 MG PO
== END ==
LOC: LAB 14:50
DX: N39.0 Urinary tract infection, site not specified (principal)

== ENCOUNTER → 2020-06-14 | Outpatient (CLI) | payer MEDICARE, BC ==
[~2020-06-14] MED LIST changes: +NORCO 325 MG-51 TA1 PO; +POTA20PKT PO; +SYNTHROID25 MCG PO; +VANCOMYCIN HYD125 MG PO
[2020-06-14 16:14] LABS: URINE APPEARANCE HAZY; URINE COLOR YELLOW; URINE GLUCOSE 50 mg/dL mg/dL (NEGATIVE); URINE KETONE 1+ (NEGATIVE); URINE PROTEIN(semi-quant) 1+ mg/dL (NEGATIVE)
[2020-06-14 16:15] LABS: URINE BILIRUBIN NEGATIVE (NEGATIVE); URINE BLOOD 250 ery/uL (NEGATIVE); URINE LEUKOCYTE ESTERASE 1+ (NEGATIVE); URINE NITRATE NEGATIVE (NEGATIVE); URINE UROBILINOGEN NORMAL (NORMAL); URINE WBC 16-30 /hpf (0-3)
== END ==
LOC: LAB 06:30
PROVIDERS: Physician Assistant Medical
DX: N39.0 Urinary tract infection, site not specified (principal)

== ENCOUNTER → 2020-06-21 | Outpatient (CLI) | payer MEDICARE, BC ==
[~2020-06-21] MED LIST changes: -ALBUTEROL2.5 MG/3 M IH; +BISACODYL10 MG RC; -CALCIUM ADULT1 EACH PO; -CRANBERRY450 M2 PO; -DULCOLAX S10 MG/SUPP RC; -GLUCAGEN DIAGNOS1 MG IM; -LEVETIRACETAM500 M2 PO; -NORCO 325 MG-51 TA1 PO; -POTA20PKT PO; -SYNTHROID25 MCG PO; -SYSTANE COMPLET10 ML OU; -TYLENOL EXTRA500 M2 PO; -VANCOMYCIN HYD125 MG PO; -VITAMIN C PUR1000 MG PO; -WELLBUTRIN 75MG75 MG PO
== END ==
LOC: RAD 12:00
DX: R13.10 Dysphagia, unspecified (principal)

== ENCOUNTER → 2020-07-02 | Outpatient (CLI) | payer MEDICARE, BC ==
[2020-06-29 13:35] VITALS: BP 147/70
[~2020-07-02] MED LIST changes: +ALBUTEROL2.5 MG/3 M IH; -BISACODYL10 MG RC; +CALCIUM ADULT1 EACH PO; +CRANBERRY450 M2 PO; +DULCOLAX S10 MG/SUPP RC; +GLUCAGEN DIAGNOS1 MG IM; +LEVETIRACETAM500 M2 PO; +POTA20PKT PO; +SYSTANE COMPLET10 ML OU; +TYLENOL EXTRA500 M2 PO; +VANCOMYCIN HYD125 MG PO; +VITAMIN C PUR1000 MG PO; +WELLBUTRIN 75MG75 MG PO
[2020-07-02 09:36] LABS: HEMATOCRIT 29.1 % (37.0-47.0); HEMOGLOBIN 9.3 g/dL (12.5-16.0); MEAN PLATELET VOLUME 8.1 fl (7.4-10.4); RED BLOOD COUNT 3.06 M/mm3 (4.10-5.30); RED CELL DISTRIBUTION WIDTH 14.8 % (11.5-14.5); WHITE BLOOD COUNT 4.9 K/mm3 (4.8-10.8)
[2020-07-02 09:44] LABS: POTASSIUM 3.8 mmol/L (3.5-5.1)
[2020-07-02 09:45] LABS: CALCIUM 7.2 mg/dL (8.3-10.5)
== END ==
LOC: LAB 08:51
PROVIDERS: Family Medicine
DX: K52.9 Noninfective gastroenteritis and colitis, unspecified (principal)

== ENCOUNTER → 2020-07-04 | Outpatient (CLI) | payer MEDICARE, BC ==
[2020-06-29 13:35] VITALS: BP 147/70
[2020-07-04 13:53] LABS: HEMATOCRIT 30.1 % (37.0-47.0); HEMOGLOBIN 9.6 g/dL (12.5-16.0); RED BLOOD COUNT 3.13 M/mm3 (4.10-5.30); RED CELL DISTRIBUTION WIDTH 15.2 % (11.5-14.5)
[2020-07-04 14:02] LABS: ALBUMIN 2.5 g/dL (3.4-4.8); POTASSIUM 4.2 mmol/L (3.5-5.1)
[2020-07-04 14:04] LABS: TOTAL PROTEIN 5.5 g/dL (6.2-8.1)
[2020-07-04 14:06] LABS: TOTAL BILIRUBIN 0.2 mg/dL (0.2-1.2)
== END ==
LOC: LAB 13:39
PROVIDERS: Family Medicine
DX: D64.9 Anemia, unspecified (principal); E83.51 Hypocalcemia

== ENCOUNTER → 2020-07-09 | Outpatient (CLI) | payer MEDICARE, BC ==
[2020-06-29 13:35] VITALS: BP 147/70
[2020-07-09 14:01] LABS: HEMATOCRIT 29.3 % (37.0-47.0); HEMOGLOBIN 9.1 g/dL (12.5-16.0); MEAN CELL VOLUME 98 fl (78-100); MEAN CORPUSCULAR HEMOGLOBIN 30 pg (27-31); MEAN CORPUSCULAR HGB CONC 31 g/dL (33-37); PLATELET COUNT 418 K/mm3 (130-400); RED CELL DISTRIBUTION WIDTH 15.4 % (11.5-14.5); WHITE BLOOD COUNT 4.3 K/mm3 (4.8-10.8)
[2020-07-09 14:07] LABS: CALCIUM 8.9 mg/dL (8.3-10.5)
[2020-07-09 14:13] LABS: LYMPHOCYTE 12 % (20-51); MONOCYTE 12 % (3-10); NEUTROPHILS 71 % (42-75)
== END ==
LOC: LAB 13:47
PROVIDERS: Family Medicine
DX: D64.9 Anemia, unspecified (principal)

== ENCOUNTER 2020-07-23 08:05 | Emergency (ER) | payer MEDICARE, BC ==
[~2020-07-23] VITALS: Wt 58.4 kg
[2020-07-23 08:40] LABS: HEMATOCRIT 42.2 % (37.0-47.0); HEMOGLOBIN 13.2 g/dL (12.5-16.0); MEAN CELL VOLUME 98 fl (78-100); MEAN CORPUSCULAR HEMOGLOBIN 31 pg (27-31); MEAN CORPUSCULAR HGB CONC 31 g/dL (33-37); MEAN PLATELET VOLUME 9.4 fl (7.4-10.4); PLATELET COUNT 374 K/mm3 (130-400); RED BLOOD COUNT 4.31 M/mm3 (4.10-5.30); RED CELL DISTRIBUTION WIDTH 15.5 % (11.5-14.5); WHITE BLOOD COUNT 7.3 K/mm3 (4.8-10.8)
[2020-07-23] MEDS ORDERED: COLACE100 M1 PO (08:44)
[2020-07-23 08:49] LABS: ALBUMIN 3.1 g/dL (3.4-4.8); POTASSIUM 3.9 mmol/L (3.5-5.1)
[2020-07-23 08:50] LABS: CALCIUM 8.6 mg/dL (8.3-10.5); LYMPHOCYTE 13 % (20-51); MONOCYTE 13 % (3-10); NEUTROPHILS 73 % (42-75)
[2020-07-23 08:52] LABS: TOTAL PROTEIN 6.1 g/dL (6.2-8.1)
[2020-07-23 08:54] LABS: TOTAL BILIRUBIN 0.4 mg/dL (0.2-1.2)
[2020-07-23 09:58] LABS: URINE APPEARANCE CLOUDY; URINE BILIRUBIN NEGATIVE (NEGATIVE); URINE BLOOD 50 ery/uL (NEGATIVE); URINE COLOR YELLOW; URINE GLUCOSE NEGATIVE (NEGATIVE); URINE KETONE 2+ (NEGATIVE); URINE LEUKOCYTE ESTERASE 1+ (NEGATIVE); URINE MUCUS PRESENT (NOT PRESENT); URINE NITRATE POSITIVE (NEGATIVE); URINE PROTEIN(semi-quant) TRACE mg/dL (NEGATIVE); URINE UROBILINOGEN NORMAL (NORMAL); URINE WBC 16-30 /hpf (0-3)
[2020-07-23] MEDS ORDERED: NORCO 325 MG-51 TA1 PO ×2 (12:31)
[2020-07-23 13:14] LABS: POTASSIUM 3.9 mmol/L (3.5-5.1)
[2020-07-23 13:15] LABS: CALCIUM 7.2 mg/dL (8.3-10.5)
[2020-07-23 14:50] VITALS: BP 136/68
[2020-07-23] MEDS ORDERED: MIRALAX17 GM PO (19:12)
[2020-07-23] MEDS ORDERED: SYNTHROID25 MCG PO (19:13)
== END 2020-07-23 13:39 | disposition other institution (70) ==
LOC: ED 08:05
PROVIDERS: Physician Assistant
DX: N39.0 Urinary tract infection, site not specified (principal); A41.9 Sepsis, unspecified organism; A04.72 Enterocolitis due to Clostridium difficile, not specified as recurrent; E03.9 Hypothyroidism, unspecified; E78.5 Hyperlipidemia, unspecified; F41.9 Anxiety disorder, unspecified; G40.909 Epilepsy, unspecified, not intractable, without status epilepticus; G35 Multiple sclerosis; Z53.9 Procedure and treatment not carried out, unspecified reason; Z79.82 Long term (current) use of aspirin; Z79.890 Hormone replacement therapy
CPT/HCPCS: J2405; J7030

== ENCOUNTER → 2020-08-01 | Outpatient (REF) ==
[2020-07-27 09:44] VITALS: BP 190/95
[~2020-08-01] MED LIST changes: +NORCO 325 MG-51 TA1 PO; +SYNTHROID25 MCG PO
[2020-08-01 13:14] LABS: EOS # 0.2 (0.04-0.40); EOS % 2.5 % (1.0-5.0); HEMATOCRIT 32.2 % (37.0-47.0); HEMOGLOBIN 10.2 g/dL (12.5-16.0); LYMPH# 0.8 (1.50-4.00); MEAN CELL VOLUME 94 fl (78-100); MEAN CORPUSCULAR HEMOGLOBIN 30 pg (27-31); MEAN CORPUSCULAR HGB CONC 32 g/dL (33-37); MEAN PLATELET VOLUME 8.4 fl (7.4-10.4); MONO # 0.7 (0.20-0.80); NEU # 4.3 (1.40-6.50); PLATELET COUNT 331 K/mm3 (130-400); RED BLOOD COUNT 3.41 M/mm3 (4.10-5.30); RED CELL DISTRIBUTION WIDTH 15.6 % (11.5-14.5)
[2020-08-01 13:20] LABS: ALBUMIN 2.4 g/dL (3.4-4.8)
[2020-08-01 13:22] LABS: CALCIUM 7.1 mg/dL (8.3-10.5)
[2020-08-01 13:23] LABS: TOTAL PROTEIN 4.8 g/dL (6.2-8.1)
[2020-08-01 13:25] LABS: TOTAL BILIRUBIN 0.2 mg/dL (0.2-1.2)
[2020-08-01 13:30] LABS: MAGNESIUM 1.46 mg/dL (1.60-2.60)
== END ==
LOC: LAB 12:57
PROVIDERS: Family Medicine
DX: E83.51 Hypocalcemia (principal); R19.7 Diarrhea, unspecified

== ENCOUNTER → 2020-08-02 | Outpatient (REF) ==
[2020-07-27 09:44] VITALS: BP 190/95
== END ==
LOC: LAB 12:22
DX: E83.51 Hypocalcemia (principal); R19.7 Diarrhea, unspecified

== ENCOUNTER → 2020-08-03 | Outpatient (REF) ==
[2020-07-27 09:44] VITALS: BP 190/95
[2020-08-03 10:58] LABS: ALBUMIN 2.4 g/dL (3.4-4.8)
[2020-08-03 10:59] LABS: POTASSIUM 3.3 mmol/L (3.5-5.1)
[2020-08-03 11:00] LABS: CALCIUM 7.4 mg/dL (8.3-10.5)
[2020-08-03 11:01] LABS: TOTAL PROTEIN 4.9 g/dL (6.2-8.1)
[2020-08-03 11:03] LABS: TOTAL BILIRUBIN 0.2 mg/dL (0.2-1.2)
[2020-08-03 11:08] LABS: MAGNESIUM 1.54 mg/dL (1.60-2.60)
== END ==
LOC: LAB 09:59
PROVIDERS: Family Medicine
DX: A04.72 Enterocolitis due to Clostridium difficile, not specified as recurrent (principal); E83.51 Hypocalcemia; R19.7 Diarrhea, unspecified

== ENCOUNTER → 2020-08-06 | Outpatient (REF) ==
[2020-07-27 09:44] VITALS: BP 190/95
[2020-08-06 11:33] LABS: ALBUMIN 2.4 g/dL (3.4-4.8)
[2020-08-06 11:34] LABS: POTASSIUM 3.6 mmol/L (3.5-5.1)
[2020-08-06 11:35] LABS: CALCIUM 7.7 mg/dL (8.3-10.5)
[2020-08-06 11:36] LABS: TOTAL PROTEIN 4.8 g/dL (6.2-8.1)
[2020-08-06 11:38] LABS: TOTAL BILIRUBIN 0.2 mg/dL (0.2-1.2)
[2020-08-06 11:42] LABS: MAGNESIUM 1.47 mg/dL (1.60-2.60)
== END ==
LOC: LAB 10:59
PROVIDERS: Family Medicine
DX: E87.6 Hypokalemia (principal); E83.42 Hypomagnesemia

== ENCOUNTER → 2020-08-09 | Outpatient (REF) ==
[2020-07-27 09:44] VITALS: BP 190/95
[2020-08-09 13:38] LABS: EOS # 0.1 (0.04-0.40); HEMATOCRIT 33.2 % (37.0-47.0); HEMOGLOBIN 10.2 g/dL (12.5-16.0); MEAN CELL VOLUME 97 fl (78-100); MEAN CORPUSCULAR HEMOGLOBIN 30 pg (27-31); MEAN CORPUSCULAR HGB CONC 31 g/dL (33-37); MEAN PLATELET VOLUME 8.6 fl (7.4-10.4); MONO # 0.4 (0.20-0.80); NEU # 2.9 (1.40-6.50); PLATELET COUNT 469 K/mm3 (130-400); RED BLOOD COUNT 3.43 M/mm3 (4.10-5.30); RED CELL DISTRIBUTION WIDTH 16.1 % (11.5-14.5)
[2020-08-09 13:39] LABS: LYMPH# 0.5 (1.50-4.00)
== END ==
LOC: LAB 13:12
PROVIDERS: Family Medicine
DX: D64.9 Anemia, unspecified (principal)

== ENCOUNTER → 2020-08-13 | Outpatient (REF) ==
[2020-07-27 09:44] VITALS: BP 190/95
[2020-08-13 11:54] LABS: ALBUMIN 2.7 g/dL (3.4-4.8)
[2020-08-13 11:56] LABS: CALCIUM 8.7 mg/dL (8.3-10.5)
[2020-08-13 11:57] LABS: TOTAL PROTEIN 5.3 g/dL (6.2-8.1)
[2020-08-13 11:59] LABS: TOTAL BILIRUBIN 0.1 mg/dL (0.2-1.2)
[2020-08-13 12:04] LABS: MAGNESIUM 1.43 mg/dL (1.60-2.60)
== END ==
LOC: LAB 11:26
PROVIDERS: Family Medicine
DX: E83.51 Hypocalcemia (principal)

== ENCOUNTER → 2020-09-13 | Outpatient (CLI) | payer MEDICARE, BC ==
[2020-07-27 09:44] VITALS: BP 190/95
[2020-09-13 12:24] LABS: EOS # 0.1 (0.04-0.40); EOS % 2.1 % (1.0-5.0); HEMATOCRIT 31.7 % (37.0-47.0); HEMOGLOBIN 9.8 g/dL (12.5-16.0); LYMPH# 0.8 (1.50-4.00); MEAN CELL VOLUME 96 fl (78-100); MEAN CORPUSCULAR HEMOGLOBIN 30 pg (27-31); MEAN CORPUSCULAR HGB CONC 31 g/dL (33-37); MONO # 0.4 (0.20-0.80); NEU # 3.5 (1.40-6.50); PLATELET COUNT 257 K/mm3 (130-400); RED BLOOD COUNT 3.29 M/mm3 (4.10-5.30); RED CELL DISTRIBUTION WIDTH 14.6 % (11.5-14.5); WHITE BLOOD COUNT 4.9 K/mm3 (4.8-10.8)
[2020-09-13 12:34] LABS: ALBUMIN 3.5 g/dL (3.4-4.8); POTASSIUM 4.5 mmol/L (3.5-5.1)
[2020-09-13 12:35] LABS: CALCIUM 9.6 mg/dL (8.3-10.5)
[2020-09-13 12:37] LABS: TOTAL PROTEIN 6.5 g/dL (6.2-8.1)
[2020-09-13 12:39] LABS: TOTAL BILIRUBIN 0.2 mg/dL (0.2-1.2)
[2020-09-13 13:34] LABS: MAGNESIUM 1.79 mg/dL (1.60-2.60)
== END ==
LOC: LAB 11:41
PROVIDERS: Internal Medicine Medical Oncology
DX: D64.9 Anemia, unspecified (principal); E83.42 Hypomagnesemia

== ENCOUNTER → 2020-10-11 | Outpatient (CLI) | payer MEDICARE, BC ==
[2020-07-27 09:44] VITALS: BP 190/95
[2020-10-11 12:07] LABS: EOS # 0.1 (0.04-0.40); HEMATOCRIT 32.9 % (37.0-47.0); HEMOGLOBIN 10.1 g/dL (12.5-16.0); MEAN CELL VOLUME 96 fl (78-100); MEAN CORPUSCULAR HEMOGLOBIN 29 pg (27-31); MEAN CORPUSCULAR HGB CONC 31 g/dL (33-37); MEAN PLATELET VOLUME 10.4 fl (7.4-10.4); MONO # 0.3 (0.20-0.80); NEU # 2.4 (1.40-6.50); PLATELET COUNT 215 K/mm3 (130-400); RED BLOOD COUNT 3.44 M/mm3 (4.10-5.30); RED CELL DISTRIBUTION WIDTH 14.9 % (11.5-14.5); WHITE BLOOD COUNT 3.3 K/mm3 (4.8-10.8)
[2020-10-11 12:09] LABS: ALBUMIN 3.5 g/dL (3.4-4.8); POTASSIUM 4.2 mmol/L (3.5-5.1)
[2020-10-11 12:10] LABS: CALCIUM 9.3 mg/dL (8.3-10.5)
[2020-10-11 12:11] LABS: LYMPH# 0.6 (1.50-4.00); TOTAL PROTEIN 6.9 g/dL (6.2-8.1)
[2020-10-11 12:13] LABS: TOTAL BILIRUBIN 0.2 mg/dL (0.2-1.2)
== END ==
LOC: LAB 11:13
PROVIDERS: Internal Medicine Medical Oncology
DX: D64.9 Anemia, unspecified (principal)

== ENCOUNTER 2020-10-13 11:37 | Emergency (ER) | payer MEDICARE, BC ==
[2020-10-13 12:09] LABS: HEMATOCRIT 41.2 % (37.0-47.0); HEMOGLOBIN 13.1 g/dL (12.5-16.0); MEAN CELL VOLUME 95 fl (78-100); MEAN CORPUSCULAR HEMOGLOBIN 30 pg (27-31); MEAN CORPUSCULAR HGB CONC 32 g/dL (33-37); PLATELET COUNT 131 K/mm3 (130-400); RED BLOOD COUNT 4.35 M/mm3 (4.10-5.30); RED CELL DISTRIBUTION WIDTH 15.1 % (11.5-14.5); WHITE BLOOD COUNT 4.2 K/mm3 (4.8-10.8)
[2020-10-13 12:19] LABS: LYMPHOCYTE 8 % (20-51); MONOCYTE 6 % (3-10); NEUTROPHILS 84 % (42-75)
[2020-10-13 13:14] LABS: URINE APPEARANCE CLEAR; URINE BILIRUBIN NEGATIVE (NEGATIVE); URINE BLOOD NEGATIVE (NEGATIVE); URINE COLOR YELLOW; URINE GLUCOSE NEGATIVE (NEGATIVE); URINE KETONE NEGATIVE (NEGATIVE); URINE LEUKOCYTE ESTERASE TRACE (NEGATIVE); URINE NITRATE NEGATIVE (NEGATIVE); URINE PROTEIN(semi-quant) NEGATIVE (NEGATIVE); URINE UROBILINOGEN NORMAL (NORMAL); URINE WBC 0-1 /hpf (0-3)
[2020-10-13 14:40] VITALS: BP 146/68
== END 2020-10-13 14:42 | disposition home or self-care (01) ==
LOC: ED 11:37
PROVIDERS: Family Medicine
DX: R50.9 Fever, unspecified (principal); E16.2 Hypoglycemia, unspecified; R56.9 Unspecified convulsions; F32.9 Major depressive disorder, single episode, unspecified; Z90.49 Acquired absence of other specified parts of digestive tract; Z79.82 Long term (current) use of aspirin; Z79.890 Hormone replacement therapy; Z79.51 Long term (current) use of inhaled steroids

== ENCOUNTER → 2020-10-19 | Outpatient (CLI) | payer MEDICARE, BC ==
[2020-10-13 14:40] VITALS: BP 146/68
[~2020-10-19] MED LIST changes: +LEVETIRACET100 MG/ML; +MACROBID 100 M100 MG PO; +SCOPOLAMINE1 EACH TD
[2020-10-19 08:58] LABS: EOS # 0.1 (0.04-0.40); EOS % 2.7 % (1.0-5.0); HEMATOCRIT 28.7 % (37.0-47.0); HEMOGLOBIN 9.1 g/dL (12.5-16.0); LYMPH# 0.8 (1.50-4.00); MEAN CELL VOLUME 95 fl (78-100); MEAN CORPUSCULAR HEMOGLOBIN 30 pg (27-31); MEAN CORPUSCULAR HGB CONC 32 g/dL (33-37); MEAN PLATELET VOLUME 9.7 fl (7.4-10.4); MONO # 0.5 (0.20-0.80); PLATELET COUNT 224 K/mm3 (130-400); RED BLOOD COUNT 3.01 M/mm3 (4.10-5.30); RED CELL DISTRIBUTION WIDTH 14.7 % (11.5-14.5); WHITE BLOOD COUNT 4.5 K/mm3 (4.8-10.8)
== END ==
LOC: LAB 08:10
PROVIDERS: Family Medicine
DX: G35 Multiple sclerosis (principal)

== ENCOUNTER 2020-11-07 12:01 | Emergency (ER) | payer MEDICARE, BC ==
[~2020-11-07 12:01] MED LIST changes: -LEVETIRACET100 MG/ML; -MACROBID 100 M100 MG PO; -SCOPOLAMINE1 EACH TD
[2020-11-07] MEDS ORDERED: SCOPOLAMINE1 EACH TD (12:23)
[2020-11-07 12:38] LABS: HEMOGLOBIN 9.2 g/dL (12.5-16.0); MEAN CELL VOLUME 97 fl (78-100); MEAN CORPUSCULAR HEMOGLOBIN 30 pg (27-31); MEAN CORPUSCULAR HGB CONC 31 g/dL (33-37); MEAN PLATELET VOLUME 8.9 fl (7.4-10.4); PLATELET COUNT 179 K/mm3 (130-400); RED BLOOD COUNT 3.11 M/mm3 (4.10-5.30); RED CELL DISTRIBUTION WIDTH 14.9 % (11.5-14.5)
[2020-11-07] MEDS ORDERED: LEVETIRACET100 MG/ML (12:38)
[2020-11-07 12:50] LABS: ALBUMIN 3.1 g/dL (3.4-4.8)
[2020-11-07 12:51] LABS: CALCIUM 8.5 mg/dL (8.3-10.5); LYMPHOCYTE 4 % (20-51); MONOCYTE 6 % (3-10); NEUTROPHILS 89 % (42-75)
[2020-11-07 12:53] LABS: TOTAL PROTEIN 6.1 g/dL (6.2-8.1)
[2020-11-07 12:54] LABS: TOTAL BILIRUBIN 0.3 mg/dL (0.2-1.2)
[2020-11-07 14:54] LABS: URINE APPEARANCE CLOUDY; URINE BILIRUBIN NEGATIVE (NEGATIVE); URINE BLOOD TRACE (NEGATIVE); URINE COLOR YELLOW; URINE KETONE 2+ (NEGATIVE); URINE LEUKOCYTE ESTERASE 2+ (NEGATIVE); URINE NITRATE POSITIVE (NEGATIVE); URINE PROTEIN(semi-quant) TRACE mg/dL (NEGATIVE); URINE UROBILINOGEN NORMAL (NORMAL)
[2020-11-07 14:55] LABS: URINE WBC >50 /hpf (0-3)
[2020-11-07] MEDS ORDERED: MACROBID 100 M100 MG PO (16:03)
[2020-11-07 16:56] VITALS: BP 132/64
== END 2020-11-07 16:36 | disposition home or self-care (01) ==
LOC: ED 12:01
PROVIDERS: Physician Assistant
DX: E16.2 Hypoglycemia, unspecified (principal); N39.0 Urinary tract infection, site not specified; G35 Multiple sclerosis; R13.10 Dysphagia, unspecified; Z79.82 Long term (current) use of aspirin
CPT/HCPCS: J0696

== ENCOUNTER → 2021-01-08 | Outpatient (CLI) | payer MEDICARE, BC ==
[~2021-01-08] MED LIST changes: +LEVETIRACET100 MG/ML; +MACROBID 100 M100 MG PO; +SCOPOLAMINE1 EACH TD
[2021-01-08 08:59] LABS: BASO # 0.04 (0.02-0.10); EOS # 0.27 (0.04-0.40); HEMATOCRIT 30.6 % (37.0-47.0); HEMOGLOBIN 9.9 g/dL (12.5-16.0); MEAN CELL VOLUME 95 fl (78-100); MEAN CORPUSCULAR HEMOGLOBIN 31 pg (27-31); MEAN CORPUSCULAR HGB CONC 32 g/dL (33-37); MEAN PLATELET VOLUME 9.9 fl (7.4-10.4); NEU # 3.11 (1.40-6.50); PLATELET COUNT 238 K/mm3 (130-400); RED BLOOD COUNT 3.21 M/mm3 (4.10-5.30); RED CELL DISTRIBUTION WIDTH 15.4 % (11.5-14.5); WHITE BLOOD COUNT 4.5 K/mm3 (4.8-10.8)
[2021-01-08 09:03] LABS: ALBUMIN 3.3 g/dL (3.4-4.8); POTASSIUM 4.4 mmol/L (3.5-5.1)
[2021-01-08 09:05] LABS: CALCIUM 9.5 mg/dL (8.3-10.5)
[2021-01-08 09:06] LABS: TOTAL PROTEIN 6.7 g/dL (6.2-8.1)
[2021-01-08 09:08] LABS: TOTAL BILIRUBIN 0.2 mg/dL (0.2-1.2)
== END ==
LOC: LAB 08:43
PROVIDERS: Internal Medicine Medical Oncology
DX: D64.9 Anemia, unspecified (principal)

== ENCOUNTER → 2021-01-22 | Outpatient (CLI) | payer MEDICARE, BC ==
[2021-01-22 12:02] LABS: BASO # 0.04 (0.02-0.10); EOS # 0.22 (0.04-0.40); EOS % 4.9 % (1.0-5.0); HEMATOCRIT 30.5 % (37.0-47.0); HEMOGLOBIN 9.9 g/dL (12.5-16.0); LYMPH# 0.59 (1.50-4.00); MEAN CELL VOLUME 95 fl (78-100); MEAN CORPUSCULAR HEMOGLOBIN 31 pg (27-31); MEAN CORPUSCULAR HGB CONC 33 g/dL (33-37); MEAN PLATELET VOLUME 10.4 fl (7.4-10.4); MONO # 0.42 (0.20-0.80); NEU # 3.22 (1.40-6.50); PLATELET COUNT 219 K/mm3 (130-400); RED CELL DISTRIBUTION WIDTH 15.2 % (11.5-14.5); WHITE BLOOD COUNT 4.5 K/mm3 (4.8-10.8)
[2021-01-22 12:07] LABS: ALBUMIN 3.4 g/dL (3.4-4.8); POTASSIUM 4.5 mmol/L (3.5-5.1)
[2021-01-22 12:08] LABS: CALCIUM 9.3 mg/dL (8.3-10.5)
[2021-01-22 12:10] LABS: TOTAL PROTEIN 6.7 g/dL (6.2-8.1)
[2021-01-22 12:11] LABS: TOTAL BILIRUBIN 0.2 mg/dL (0.2-1.2)
== END ==
LOC: LAB 11:27
PROVIDERS: Internal Medicine Medical Oncology
DX: D64.9 Anemia, unspecified (principal)

== ENCOUNTER → 2021-01-24 | Outpatient (CLI) | payer MEDICARE, BC | LOC: RAD 09:52 | DX: R74.8 Abnormal levels of other serum enzymes (principal) | CPT/HCPCS: Q9967 ==

== ENCOUNTER 2021-02-17 10:13 | Emergency (ER) | payer MEDICARE, BC ==
[2021-02-17 10:53] LABS: ALBUMIN 3.5 g/dL (3.4-4.8); POTASSIUM 4.1 mmol/L (3.5-5.1)
[2021-02-17 10:54] LABS: BASO # 0.03 (0.02-0.10); CALCIUM 9.6 mg/dL (8.3-10.5); EOS # 0.08 (0.04-0.40); EOS % 1.3 % (1.0-5.0); HEMATOCRIT 29.6 % (37.0-47.0); HEMOGLOBIN 9.7 g/dL (12.5-16.0); LYMPH# 0.61 (1.50-4.00); MEAN CELL VOLUME 94 fl (78-100); MEAN CORPUSCULAR HEMOGLOBIN 31 pg (27-31); MEAN CORPUSCULAR HGB CONC 33 g/dL (33-37); MEAN PLATELET VOLUME 10.4 fl (7.4-10.4); MONO # 0.59 (0.20-0.80); NEU # 4.84 (1.40-6.50); PLATELET COUNT 147 K/mm3 (130-400); RED BLOOD COUNT 3.14 M/mm3 (4.10-5.30); RED CELL DISTRIBUTION WIDTH 15.2 % (11.5-14.5); WHITE BLOOD COUNT 6.2 K/mm3 (4.8-10.8)
[2021-02-17 10:57] LABS: TOTAL BILIRUBIN 0.5 mg/dL (0.2-1.2)
[2021-02-17 11:13] LABS: URINE APPEARANCE CLEAR; URINE BILIRUBIN NEGATIVE (NEGATIVE); URINE BLOOD NEGATIVE (NEGATIVE); URINE COLOR YELLOW; URINE GLUCOSE NEGATIVE (NEGATIVE); URINE KETONE 1+ (NEGATIVE); URINE LEUKOCYTE ESTERASE NEGATIVE (NEGATIVE); URINE NITRATE NEGATIVE (NEGATIVE); URINE PROTEIN(semi-quant) TRACE mg/dL (NEGATIVE); URINE UROBILINOGEN NORMAL (NORMAL)
[2021-02-17 11:14] LABS: URINE MUCUS PRESENT (NOT PRESENT)
[2021-02-17 14:50] VITALS: BP 140/86
== END 2021-02-17 14:40 | disposition home or self-care (01) ==
LOC: ED 10:13
PROVIDERS: Family Medicine
DX: R41.82 Altered mental status, unspecified (principal); E16.2 Hypoglycemia, unspecified; G35 Multiple sclerosis; E86.9 Volume depletion, unspecified; G40.909 Epilepsy, unspecified, not intractable, without status epilepticus; F32.9 Major depressive disorder, single episode, unspecified; F41.9 Anxiety disorder, unspecified; Z90.49 Acquired absence of other specified parts of digestive tract; Z87.891 Personal history of nicotine dependence; Z79.899 Other long term (current) drug therapy
CPT/HCPCS: J7030

== ENCOUNTER → 2021-02-22 | Outpatient (CLI) | payer MEDICARE, BC ==
[2021-02-22 11:12] LABS: HEMATOCRIT 30.3 % (37.0-47.0); HEMOGLOBIN 9.8 g/dL (12.5-16.0); MEAN PLATELET VOLUME 10.3 fl (7.4-10.4); RED BLOOD COUNT 3.2 M/mm3 (4.10-5.30); RED CELL DISTRIBUTION WIDTH 14.8 % (11.5-14.5); WHITE BLOOD COUNT 4.5 K/mm3 (4.8-10.8)
[2021-02-22 11:24] LABS: ALBUMIN 3.5 g/dL (3.4-4.8); POTASSIUM 3.5 mmol/L (3.5-5.1)
[2021-02-22 11:25] LABS: CALCIUM 9.2 mg/dL (8.3-10.5)
[2021-02-22 11:26] LABS: TOTAL PROTEIN 6.9 g/dL (6.2-8.1)
[2021-02-22 11:28] LABS: TOTAL BILIRUBIN 0.3 mg/dL (0.2-1.2)
== END ==
LOC: LAB 10:58
PROVIDERS: Family Medicine
DX: G35 Multiple sclerosis (principal); D64.9 Anemia, unspecified

== ENCOUNTER → 2021-03-27 | Outpatient (CLI) | payer MEDICARE, BC ==
[2021-03-27 14:00] LABS: ALBUMIN 3.4 g/dL (3.4-4.8)
[2021-03-27 14:01] LABS: BASO # 0.04 (0.02-0.10); EOS # 0.15 (0.04-0.40); EOS % 2.9 % (1.0-5.0); HEMATOCRIT 30.5 % (37.0-47.0); HEMOGLOBIN 9.7 g/dL (12.5-16.0); LYMPH# 0.53 (1.50-4.00); MEAN CELL VOLUME 97 fl (78-100); MEAN CORPUSCULAR HEMOGLOBIN 31 pg (27-31); MEAN CORPUSCULAR HGB CONC 32 g/dL (33-37); MEAN PLATELET VOLUME 10.3 fl (7.4-10.4); MONO # 0.36 (0.20-0.80); NEU # 4.08 (1.40-6.50); PLATELET COUNT 202 K/mm3 (130-400); POTASSIUM 4.3 mmol/L (3.5-5.1); RED BLOOD COUNT 3.16 M/mm3 (4.10-5.30); RED CELL DISTRIBUTION WIDTH 14.5 % (11.5-14.5); WHITE BLOOD COUNT 5.2 K/mm3 (4.8-10.8)
[2021-03-27 14:05] LABS: TOTAL BILIRUBIN 0.2 mg/dL (0.2-1.2)
== END ==
LOC: LAB 13:30
PROVIDERS: Family Medicine
DX: G35 Multiple sclerosis (principal); D64.9 Anemia, unspecified

== ENCOUNTER 2021-04-14 06:53 | Emergency (ER) | payer MEDICARE, BC ==
[2021-04-14 08:22] LABS: ALBUMIN 3.4 g/dL (3.4-4.8); POTASSIUM 4.7 mmol/L (3.5-5.1); SODIUM 138 mmol/L (136-145)
[2021-04-14 08:24] LABS: CALCIUM 10.4 mg/dL (8.3-10.5)
[2021-04-14 08:25] LABS: GLUCOSE 84 mg/dL (65-105); TOTAL PROTEIN 7.1 g/dL (6.2-8.1)
[2021-04-14 08:26] LABS: CARBON DIOXIDE 27 mmol/L (23-31); HEMATOCRIT 30.4 % (37.0-47.0); HEMOGLOBIN 9.8 g/dL (12.5-16.0); MEAN CELL VOLUME 96 fl (78-100); MEAN CORPUSCULAR HEMOGLOBIN 31 pg (27-31); MEAN CORPUSCULAR HGB CONC 32 g/dL (33-37); MEAN PLATELET VOLUME 10.4 fl (7.4-10.4); PLATELET COUNT 191 K/mm3 (130-400); RED BLOOD COUNT 3.17 M/mm3 (4.10-5.30); RED CELL DISTRIBUTION WIDTH 14.3 % (11.5-14.5); WHITE BLOOD COUNT 5.1 K/mm3 (4.8-10.8)
[2021-04-14 08:27] LABS: TOTAL BILIRUBIN 0.2 mg/dL (0.2-1.2)
[2021-04-14 08:30] LABS: AST-SGOT 45 U/L (5-34)
[2021-04-14 08:31] LABS: ALT/SGPT 50 U/L (0-55)
[2021-04-14 08:32] LABS: PH-URINE 8.5 (5.0 - 8.0); URINE APPEARANCE CLOUDY; URINE BILIRUBIN NEGATIVE (NEGATIVE); URINE BLOOD NEGATIVE (NEGATIVE); URINE COLOR YELLOW; URINE GLUCOSE NEGATIVE (NEGATIVE); URINE KETONE NEGATIVE (NEGATIVE); URINE LEUKOCYTE ESTERASE NEGATIVE (NEGATIVE); URINE NITRATE NEGATIVE (NEGATIVE); URINE PROTEIN(semi-quant) NEGATIVE (NEGATIVE); URINE UROBILINOGEN NORMAL (NORMAL)
[2021-04-14 08:32] LABS: LIPASE 9 U/L (8-78)
[2021-04-14 08:40] LABS: LYMPHOCYTE 10 % (20-51); MONOCYTE 9 % (3-10); NEUTROPHILS 79 % (42-75)
[2021-04-14 08:41] LABS: TROPONIN-I < 0.03 ng/mL (<0.030)
[2021-04-14 11:01] VITALS: BP 170/70
== END 2021-04-14 10:55 | disposition home or self-care (01) ==
LOC: ED 06:53
PROVIDERS: Nurse Practitioner
DX: G35 Multiple sclerosis (principal); R44.3 Hallucinations, unspecified; R09.89 Other specified symptoms and signs involving the circulatory and respiratory systems

== ENCOUNTER → 2021-04-16 | Outpatient (CLI) | payer MEDICARE, BC ==
[2021-04-16 11:42] LABS: ALBUMIN 3.3 g/dL (3.4-4.8); POTASSIUM 4.3 mmol/L (3.5-5.1)
[2021-04-16 11:43] LABS: CALCIUM 9.9 mg/dL (8.3-10.5)
[2021-04-16 11:44] LABS: TOTAL PROTEIN 6.9 g/dL (6.2-8.1)
[2021-04-16 11:46] LABS: TOTAL BILIRUBIN 0.3 mg/dL (0.2-1.2)
== END ==
LOC: LAB 11:09
PROVIDERS: Family Medicine
DX: G35 Multiple sclerosis (principal); E78.2 Mixed hyperlipidemia; D64.9 Anemia, unspecified; E56.9 Vitamin deficiency, unspecified

== ENCOUNTER → 2021-05-10 | Outpatient (CLI) | payer MEDICARE, BC ==
[2021-05-10 18:56] LABS: ALBUMIN 3.2 g/dL (3.4-4.8); POTASSIUM 4.1 mmol/L (3.5-5.1)
[2021-05-10 18:57] LABS: CALCIUM 9.5 mg/dL (8.3-10.5)
[2021-05-10 18:59] LABS: TOTAL PROTEIN 6.6 g/dL (6.2-8.1)
[2021-05-10 19:09] LABS: TOTAL BILIRUBIN 0.1 mg/dL (0.2-1.2)
== END ==
LOC: LAB 16:10
PROVIDERS: Family Medicine
DX: E78.2 Mixed hyperlipidemia (principal)

== ENCOUNTER → 2021-08-02 | Outpatient (CLI) | payer MEDICARE, BC | LOC: LAB 08:39 | DX: G35 Multiple sclerosis (principal); K90.9 Intestinal malabsorption, unspecified; D64.9 Anemia, unspecified; E03.9 Hypothyroidism, unspecified; E78.5 Hyperlipidemia, unspecified; E55.9 Vitamin D deficiency, unspecified ==

== ENCOUNTER → 2021-08-12 | Outpatient (CLI) | payer MEDICARE, BC ==
[2021-08-12 15:32] LABS: URINE APPEARANCE CLOUDY; URINE BILIRUBIN NEGATIVE (NEGATIVE); URINE BLOOD 50 ery/uL (NEGATIVE); URINE COLOR YELLOW; URINE GLUCOSE NEGATIVE (NEGATIVE); URINE KETONE NEGATIVE (NEGATIVE); URINE NITRATE POSITIVE (NEGATIVE); URINE PROTEIN(semi-quant) 1+ mg/dL (NEGATIVE); URINE UROBILINOGEN NORMAL (NORMAL)
[2021-08-12 15:33] LABS: URINE LEUKOCYTE ESTERASE 1+ (NEGATIVE); URINE MUCUS PRESENT (NOT PRESENT); URINE WBC 31-50 /hpf (0-3)
[2021-08-12 15:53] LABS: BASO # 0.05 K/mm3 (0.02-0.10); EOS # 0.16 K/mm3 (0.04-0.40); EOS % 4.1 % (1.0-5.0); HEMATOCRIT 29.5 % (37.0-47.0); HEMOGLOBIN 9.3 g/dL (12.5-16.0); LYMPH# 0.77 K/mm3 (1.50-4.00); MEAN CELL VOLUME 100 fl (78-100); MEAN CORPUSCULAR HEMOGLOBIN 32 pg (27-31); MEAN CORPUSCULAR HGB CONC 32 g/dL (33-37); MEAN PLATELET VOLUME 9.6 fl (7.4-10.4); MONO # 0.42 K/mm3 (0.20-0.80); NEU # 2.51 K/mm3 (1.40-6.50); PLATELET COUNT 220 K/mm3 (130-400); RED BLOOD COUNT 2.94 M/mm3 (4.10-5.30); RED CELL DISTRIBUTION WIDTH 14.8 % (11.5-14.5); WHITE BLOOD COUNT 3.9 K/mm3 (4.8-10.8)
[2021-08-12 15:54] LABS: ALBUMIN 3.4 g/dL (3.4-4.8); POTASSIUM 4.1 mmol/L (3.5-5.1)
[2021-08-12 15:55] LABS: CALCIUM 8.8 mg/dL (8.3-10.5)
[2021-08-12 15:56] LABS: TOTAL PROTEIN 6.6 g/dL (6.2-8.1)
[2021-08-12 15:58] LABS: TOTAL BILIRUBIN 0.2 mg/dL (0.2-1.2)
== END ==
LOC: LAB 14:25
PROVIDERS: Family Medicine; Internal Medicine Medical Oncology
DX: G35 Multiple sclerosis (principal); E16.2 Hypoglycemia, unspecified; D64.9 Anemia, unspecified; M62.81 Muscle weakness (generalized)

== ENCOUNTER → 2021-08-14 | Outpatient (CLI) | payer MEDICARE, BC | LOC: LAB 16:56 | DX: G35 Multiple sclerosis (principal); E56.9 Vitamin deficiency, unspecified; E03.9 Hypothyroidism, unspecified ==

== ENCOUNTER → 2021-09-05 | Outpatient (CLI) | payer MEDICARE, BC ==
[2021-09-05 08:44] LABS: BASO # 0.06 K/mm3 (0.02-0.10); EOS # 0.39 K/mm3 (0.04-0.40); EOS % 8.6 % (1.0-5.0); HEMATOCRIT 28.8 % (37.0-47.0); HEMOGLOBIN 9.3 g/dL (12.5-16.0); LYMPH# 1.25 K/mm3 (1.50-4.00); MEAN CELL VOLUME 97 fl (78-100); MEAN CORPUSCULAR HEMOGLOBIN 31 pg (27-31); MEAN CORPUSCULAR HGB CONC 32 g/dL (33-37); MEAN PLATELET VOLUME 10.5 fl (7.4-10.4); NEU # 2.33 K/mm3 (1.40-6.50); PLATELET COUNT 215 K/mm3 (130-400); RED BLOOD COUNT 2.98 M/mm3 (4.10-5.30); RED CELL DISTRIBUTION WIDTH 13.8 % (11.5-14.5); WHITE BLOOD COUNT 4.5 K/mm3 (4.8-10.8)
[2021-09-05 08:54] LABS: ALBUMIN 3.3 g/dL (3.4-4.8); POTASSIUM 4.3 mmol/L (3.5-5.1)
[2021-09-05 08:56] LABS: CALCIUM 9.5 mg/dL (8.3-10.5)
[2021-09-05 08:57] LABS: TOTAL PROTEIN 6.7 g/dL (6.2-8.1)
[2021-09-05 08:59] LABS: TOTAL BILIRUBIN 0.2 mg/dL (0.2-1.2)
== END ==
LOC: LAB 08:25
PROVIDERS: Internal Medicine Medical Oncology
DX: D64.9 Anemia, unspecified (principal)

== ENCOUNTER → 2021-10-04 | Outpatient (CLI) | payer MEDICARE, BC ==
[2021-10-04 10:49] LABS: BASO # 0.08 K/mm3 (0.02-0.10); EOS # 0.35 K/mm3 (0.04-0.40); EOS % 5.4 % (1.0-5.0); HEMATOCRIT 30.6 % (37.0-47.0); HEMOGLOBIN 9.6 g/dL (12.5-16.0); LYMPH# 1.26 K/mm3 (1.50-4.00); MEAN CELL VOLUME 98 fl (78-100); MEAN CORPUSCULAR HEMOGLOBIN 31 pg (27-31); MEAN CORPUSCULAR HGB CONC 31 g/dL (33-37); MEAN PLATELET VOLUME 9.7 fl (7.4-10.4); MONO # 0.66 K/mm3 (0.20-0.80); NEU # 4.14 K/mm3 (1.40-6.50); PLATELET COUNT 294 K/mm3 (130-400); RED BLOOD COUNT 3.12 M/mm3 (4.10-5.30); RED CELL DISTRIBUTION WIDTH 13.9 % (11.5-14.5); WHITE BLOOD COUNT 6.5 K/mm3 (4.8-10.8)
[2021-10-04 11:07] LABS: POTASSIUM 3.7 mmol/L (3.5-5.1)
[2021-10-04 11:09] LABS: CALCIUM 9.8 mg/dL (8.3-10.5)
== END ==
LOC: LAB 10:18
PROVIDERS: Family Medicine
DX: G35 Multiple sclerosis (principal)

== ENCOUNTER → 2021-11-02 | Outpatient (CLI) | payer MEDICARE, BC ==
[2021-11-02 12:30] LABS: URINE APPEARANCE CLOUDY; URINE BILIRUBIN NEGATIVE (NEGATIVE); URINE BLOOD TRACE (NEGATIVE); URINE COLOR YELLOW; URINE GLUCOSE NEGATIVE (NEGATIVE); URINE KETONE NEGATIVE (NEGATIVE); URINE LEUKOCYTE ESTERASE 2+ (NEGATIVE); URINE NITRATE POSITIVE (NEGATIVE); URINE PROTEIN(semi-quant) TRACE (NEGATIVE); URINE UROBILINOGEN NORMAL (NORMAL); URINE WBC >50 /hpf (0-3)
== END ==
LOC: LAB 10:39
PROVIDERS: Family Medicine
DX: N39.0 Urinary tract infection, site not specified (principal)

== ENCOUNTER → 2021-11-19 | Outpatient (CLI) | payer MEDICARE, BC ==
[2021-11-19 14:52] LABS: URINE APPEARANCE HAZY; URINE BILIRUBIN NEGATIVE (NEGATIVE); URINE BLOOD TRACE (NEGATIVE); URINE COLOR YELLOW; URINE GLUCOSE NEGATIVE (NEGATIVE); URINE KETONE NEGATIVE (NEGATIVE); URINE LEUKOCYTE ESTERASE 2+ (NEGATIVE); URINE MUCUS PRESENT (NOT PRESENT); URINE NITRATE NEGATIVE (NEGATIVE); URINE PROTEIN(semi-quant) TRACE (NEGATIVE); URINE UROBILINOGEN NORMAL (NORMAL); URINE WBC >50 /hpf (0-3)
== END ==
LOC: LAB 14:04
PROVIDERS: Family Medicine
DX: N39.0 Urinary tract infection, site not specified (principal)

== ENCOUNTER → 2021-12-11 | Outpatient (CLI) | payer MEDICARE, BC, MEDICAID ==
[~2021-12-11] MED LIST changes: +CIPRO500 M1 PO
[2021-12-11 12:28] LABS: ALBUMIN 3.6 g/dL (3.4-4.8)
[2021-12-11 12:29] LABS: POTASSIUM 4.2 mmol/L (3.5-5.1)
[2021-12-11 12:30] LABS: CALCIUM 10.3 mg/dL (8.3-10.5)
[2021-12-11 12:31] LABS: TOTAL PROTEIN 7.3 g/dL (6.2-8.1)
[2021-12-11 12:33] LABS: TOTAL BILIRUBIN 0.2 mg/dL (0.2-1.2)
== END ==
LOC: LAB 12:18
PROVIDERS: Internal Medicine Medical Oncology
DX: D64.9 Anemia, unspecified (principal)

== ENCOUNTER 2022-01-20 06:46 | Emergency (ER) | payer MEDICARE, BC, MEDICAID ==
[~2022-01-20] VITALS: Ht 157.5 cm; Wt 68.2 kg
[~2022-01-20 06:46] MED LIST changes: -CIPRO500 M1 PO
[2022-01-20 07:28] LABS: HEMATOCRIT 29.7 % (37.0-47.0); HEMOGLOBIN 9.6 g/dL (12.5-16.0); MEAN CELL VOLUME 95 fl (78-100); MEAN CORPUSCULAR HEMOGLOBIN 31 pg (27-31); MEAN CORPUSCULAR HGB CONC 32 g/dL (33-37); MEAN PLATELET VOLUME 9.5 fl (7.4-10.4); PLATELET COUNT 124 K/mm3 (130-400); RED BLOOD COUNT 3.12 M/mm3 (4.10-5.30); WHITE BLOOD COUNT 6.6 K/mm3 (4.8-10.8)
[2022-01-20] MEDS ORDERED: DULCOLAX S10 MG/SUPP RC (07:29)
[2022-01-20 07:40] LABS: POTASSIUM 3.8 mmol/L (3.5-5.1)
[2022-01-20 07:41] LABS: CALCIUM 8.9 mg/dL (8.3-10.5)
[2022-01-20 07:42] LABS: TOTAL PROTEIN 6.2 g/dL (6.2-8.1)
[2022-01-20 07:44] LABS: TOTAL BILIRUBIN 0.8 mg/dL (0.2-1.2)
[2022-01-20 08:06] LABS: LYMPHOCYTE 5 % (20-51); MONOCYTE 11 % (3-10); NEUTROPHILS 84 % (42-75)
[2022-01-20 08:29] LABS: URINE APPEARANCE HAZY; URINE BILIRUBIN NEGATIVE (NEGATIVE); URINE BLOOD 250 ery/uL (NEGATIVE); URINE COLOR YELLOW; URINE GLUCOSE 50 mg/dL (NEGATIVE); URINE KETONE 3+ (NEGATIVE); URINE LEUKOCYTE ESTERASE 2+ (NEGATIVE); URINE MUCUS PRESENT (NOT PRESENT); URINE NITRATE POSITIVE (NEGATIVE); URINE PROTEIN(semi-quant) 1+ (NEGATIVE); URINE UROBILINOGEN NORMAL (NORMAL); URINE WBC >50 /hpf (0-3)
[2022-01-20] MEDS ORDERED: CIPRO500 M1 PO (08:41)
[2022-01-20 09:13] VITALS: BP 107/78
== END 2022-01-20 10:08 | disposition home or self-care (01) ==
LOC: ED 06:46
PROVIDERS: Family Medicine
DX: N39.0 Urinary tract infection, site not specified (principal); R73.9 Hyperglycemia, unspecified
CPT/HCPCS: J0696

== ENCOUNTER → 2022-02-11 | Outpatient (CLI) | payer MEDICARE, BC, MEDICAID ==
[~2022-02-11] MED LIST changes: +CIPRO500 M1 PO
[2022-02-11 11:40] LABS: BASO # 0.04 K/mm3 (0.02-0.10); EOS # 0.36 K/mm3 (0.04-0.40); EOS % 6.5 % (1.0-5.0); HEMATOCRIT 34.1 % (37.0-47.0); HEMOGLOBIN 10.7 g/dL (12.5-16.0); LYMPH# 0.95 K/mm3 (1.50-4.00); MEAN CELL VOLUME 98 fl (78-100); MEAN CORPUSCULAR HEMOGLOBIN 31 pg (27-31); MEAN CORPUSCULAR HGB CONC 31 g/dL (33-37); MONO # 0.29 K/mm3 (0.20-0.80); NEU # 3.88 K/mm3 (1.40-6.50); PLATELET COUNT 273 K/mm3 (130-400); RED BLOOD COUNT 3.49 M/mm3 (4.10-5.30); WHITE BLOOD COUNT 5.5 K/mm3 (4.8-10.8)
[2022-02-11 11:45] LABS: ALBUMIN 3.7 g/dL (3.4-4.8)
[2022-02-11 11:47] LABS: CALCIUM 9.5 mg/dL (8.3-10.5)
[2022-02-11 11:48] LABS: TOTAL PROTEIN 7.4 g/dL (6.2-8.1)
[2022-02-11 11:50] LABS: TOTAL BILIRUBIN 0.2 mg/dL (0.2-1.2)
== END ==
LOC: LAB 11:08
PROVIDERS: Family Medicine
DX: D69.6 Thrombocytopenia, unspecified (principal); D64.9 Anemia, unspecified; R74.8 Abnormal levels of other serum enzymes

== ENCOUNTER → 2022-02-13 | Outpatient (CLI) | payer MEDICARE, BC, MEDICAID | LOC: LAB 06:25 | DX: R73.9 Hyperglycemia, unspecified (principal) ==

== ENCOUNTER → 2022-04-08 | Outpatient (CLI) | payer MEDICARE, BC, MEDICAID ==
[2022-04-08 08:14] LABS: URINE APPEARANCE CLEAR; URINE BILIRUBIN NEGATIVE (NEGATIVE); URINE BLOOD NEGATIVE (NEGATIVE); URINE COLOR YELLOW; URINE GLUCOSE NEGATIVE (NEGATIVE); URINE KETONE NEGATIVE (NEGATIVE); URINE LEUKOCYTE ESTERASE NEGATIVE (NEGATIVE); URINE NITRATE NEGATIVE (NEGATIVE); URINE PROTEIN(semi-quant) NEGATIVE (NEGATIVE); URINE UROBILINOGEN NORMAL (NORMAL)
[2022-04-08 08:15] LABS: URINE MUCUS PRESENT (NOT PRESENT); URINE WBC 0-1 /hpf (0-3)
== END ==
LOC: LAB 07:04
PROVIDERS: Family Medicine
DX: R82.71 Bacteriuria (principal)

== ENCOUNTER → 2022-04-17 | Outpatient (CLI) | payer MEDICARE, BC, MEDICAID ==
[2022-04-17 07:57] LABS: ALBUMIN 3.4 g/dL (3.4-4.8); POTASSIUM 4.5 mmol/L (3.5-5.1)
[2022-04-17 07:58] LABS: CALCIUM 9.9 mg/dL (8.3-10.5)
[2022-04-17 07:59] LABS: TOTAL PROTEIN 6.8 g/dL (6.2-8.1)
[2022-04-17 08:01] LABS: TOTAL BILIRUBIN 0.3 mg/dL (0.2-1.2)
== END ==
LOC: LAB 07:11
PROVIDERS: Family Medicine
DX: Z01.89 Encounter for other specified special examinations (principal)

== ENCOUNTER → 2022-04-19 | Outpatient (CLI) | payer MEDICARE, BC, MEDICAID ==
[2022-04-19 12:34] LABS: ALBUMIN 3.4 g/dL (3.4-4.8); POTASSIUM 4.7 mmol/L (3.5-5.1)
[2022-04-19 12:36] LABS: TOTAL PROTEIN 6.7 g/dL (6.2-8.1)
[2022-04-19 12:37] LABS: CALCIUM 9.3 mg/dL (8.3-10.5)
[2022-04-19 12:38] LABS: TOTAL BILIRUBIN 0.2 mg/dL (0.2-1.2)
== END ==
LOC: LAB 06:00
PROVIDERS: Family Medicine
DX: R74.01 Elevation of levels of liver transaminase levels (principal)

== ENCOUNTER 2022-11-09 14:37 | Emergency (ER) | payer MEDICARE, MEDICAID ==
[~2022-11-09] VITALS: Ht 162.6 cm; Wt 75.4 kg
[2022-11-09] MEDS ORDERED: ATORVASTATIN CA20 MG PO (14:55)
[2022-11-09] MEDS ORDERED: SEROQUEL 2525 MG/TAB PO (15:22)
[2022-11-09] MEDS ORDERED: PROBIOTIC1 EACH PO (15:22)
[2022-11-09] MEDS ORDERED: SYNTHROID25 MCG PO (15:23)
[2022-11-09 15:25] LABS: HEMATOCRIT 32.3 % (37.0-47.0); HEMOGLOBIN 10.4 g/dL (12.5-16.0); MEAN CELL VOLUME 100 fl (78-100); MEAN CORPUSCULAR HEMOGLOBIN 32 pg (27-31); MEAN CORPUSCULAR HGB CONC 32 g/dL (33-37); MEAN PLATELET VOLUME 11.4 fl (7.4-10.4); PLATELET COUNT 93 K/mm3 (130-400); RED BLOOD COUNT 3.24 M/mm3 (4.10-5.30); RED CELL DISTRIBUTION WIDTH 14.6 % (11.5-14.5); WHITE BLOOD COUNT 3.5 K/mm3 (4.8-10.8)
[2022-11-09 15:33] LABS: ALBUMIN 3.6 g/dL (3.4-4.8); POTASSIUM 4.9 mmol/L (3.5-5.1)
[2022-11-09 15:34] LABS: CALCIUM 10.8 mg/dL (8.3-10.5)
[2022-11-09 15:35] LABS: TOTAL PROTEIN 7.4 g/dL (6.2-8.1)
[2022-11-09 15:37] LABS: TOTAL BILIRUBIN 0.3 mg/dL (0.2-1.2)
[2022-11-09 16:47] LABS: URINE APPEARANCE CLEAR; URINE BILIRUBIN NEGATIVE (NEGATIVE); URINE BLOOD NEGATIVE (NEGATIVE); URINE COLOR YELLOW; URINE GLUCOSE NEGATIVE (NEGATIVE); URINE KETONE NEGATIVE (NEGATIVE); URINE LEUKOCYTE ESTERASE NEGATIVE (NEGATIVE); URINE NITRATE NEGATIVE (NEGATIVE); URINE PROTEIN(semi-quant) TRACE (NEGATIVE); URINE UROBILINOGEN NORMAL (NORMAL)
[2022-11-09 16:49] LABS: URINE WBC 0-1 /hpf (0-3)
[2022-11-09 19:38] VITALS: BP 156/87
== END 2022-11-09 19:38 | disposition home or self-care (01) ==
LOC: ED 14:37
PROVIDERS: Nurse Practitioner
DX: N17.9 Acute kidney failure, unspecified (principal); R41.82 Altered mental status, unspecified
CPT/HCPCS: J7030

== ENCOUNTER → 2023-09-24 | Outpatient (CLI) | payer MEDICARE, MEDICAID ==
[~2023-09-24] MED LIST changes: +PROBIOTIC1 EACH PO; +SEROQUEL 2525 MG/TAB PO
[2023-09-24 08:33] LABS: CALCIUM 9.4 mg/dL (8.3-10.5)
[2023-09-24 22:35] LABS: CREATININE OTHER SOURCE 40 mg/dL (63-166)
== END ==
LOC: LAB 08:06
PROVIDERS: Internal Medicine Nephrology
DX: I10 Essential (primary) hypertension (principal); R80.9 Proteinuria, unspecified